=== PATIENT | female | born 1950 | race Hispanic/Latino ===

== ENCOUNTER 2017-12-18 11:01 | Inpatient (IN) | payer OTHER ==
[~2017-12-18] VITALS: Ht 162.6 cm; Wt 52.2 kg
[~2017-12-18 11:01] MED LIST: APIX5TAB PO; ASPI-1197 PO; ATOR10TA69 PO; AZAT50TA PO; CHOL100044 PO; LEVO50TA11 PO; METO25TA6 PO; OMEP20CA10 PO; PRED20TA3 PO; PROP225T3 PO; SULF1TAB42 PO; SUPER B COMPLEX PO; XALA2.5OS OU; iron PO
[2017-12-18] MEDS ORDERED: ASPIRIN 81MG TAB.CHEW ONE (11:43)
[2017-12-18] MEDS ORDERED: SODIUM CHLORIDE 0.9% 1000ML 1,000 ML IV ONE ×2 (11:43→16:01)
[2017-12-18 11:44] LABS: BASOPHILS % (AUTO) 0.8 % (0.0-5.0); EOSINOPHILS % (AUTO) 0.9 % (0.0-8.0); LYMPHOCYTES % (AUTO) 13.8 % (21.0-51.0); MEAN CORPUSCULAR HEMOGLOBIN 30.2 pg (27.0-33.0); MEAN CORPUSCULAR VOLUME 91.7 fL (79-99); MONOCYTES % (AUTO) 7.7 % (3.0-13.0); NEUTROPHILS % (AUTO) 76.8 % (40.0-77.0); PLATELET COUNT (AUTO) 324 K/uL (130-400); RED BLOOD CELL COUNT(AUTO) 3.05 MIL/uL (4.00-5.50); RED CELL DISTRIBUTION WIDTH 17.7 % (11.0-15.5)
[2017-12-18] MEDS ORDERED: FAMOTIDINE/PF 20 MG/2 ML VIAL IV ONE (11:44)
[2017-12-18 11:47] LABS: APPEARANCE,URINE Clear (CLEAR); BILIRUBIN,URINE Negative (NEGATIVE); COLOR,URINE Yellow (YELLOW); GLUCOSE, URINE (UA) Negative (NEGATIVE); KETONES,URINE Negative (NEGATIVE); LEUKOCYTE ESTERASE ,URINE Negative (NEGATIVE); NITRATE,URINE Negative (NEGATIVE); OCCULT BLOOD,URINE Negative (NEGATIVE); PROTEIN,URINE Negative (NEGATIVE); UROBILINOGEN,URINE 0.2 mg/dL (0.2-1.0)
[2017-12-18 11:52] LABS: POTASSIUM 3.9 mmol/L (3.5-5.1)
[2017-12-18 11:56] LABS: ALBUMIN 2.6 g/dL (3.5-5.0); BILIRUBIN,TOTAL 0.4 mg/dL (0.2-1.0); TOTAL PROTEIN, SERUM 5.9 g/dL (6.0-8.3)
[2017-12-18 11:57] LABS: CRP QUANTITATIVE 7.8 mg/L (0.00-9.0)
[2017-12-18 12:01] LABS: INR 1.03 (0.85-1.15); PARTIAL THROMBOPLASTIN TIME 28.7 SEC (26.3-35.5); PROTHROMBIN TIME 10.8 SEC (9.6-11.6)
[2017-12-18] MEDS ORDERED: MORPHINE SULFATE 2 MG/ML 1ML SYG ONE ×3 (12:10→16:05)
[2017-12-18] MEDS ORDERED: GUAIFENESIN-DM 200/20 MG 10 ML PO PRN (13:45)
[2017-12-18] MEDS ORDERED: ACETAMINOPHEN 325 MG TAB PO PRN ×2 (13:45)
[2017-12-18] MEDS ORDERED: MORPHINE SULFATE 4 MG/1ML SYG IV PRN (13:45)
[2017-12-18] MEDS ORDERED: MAG HYDROX/AL HYDROX/SIMETH ES 30 ML SUSP UDCUP PO PRN (13:45)
[2017-12-18] MEDS ORDERED: NITROGLYCERIN 0.4 MG SL TAB SL PRN (13:45)
[2017-12-18] MEDS ORDERED: HYDRALAZINE HCL 20 MG/ML VIAL IV PRN (13:45)
[2017-12-18] MEDS ORDERED: ACETAMINOPHEN-CODEINE 300/30MG TAB PO PRN ×2 (13:45)
[2017-12-18] MEDS ORDERED: ONDANSETRON HCL 4 MG/2 ML VIAL ONE (17:43)
[2017-12-18] MEDS ORDERED: DIGOXIN 250 MCG/ML 2ML AMP ONE (18:39)
[2017-12-18] MEDS ORDERED: METOPROLOL TARTRATE 1 MG/ML 5ML VIAL IV ONE (18:40)
[2017-12-18] MEDS: SODIUM CHLORIDE 0.9% 1000ML 1,000 ML IV SCH (20:25)
[2017-12-18 21:20] VITALS: BP 133/69
[2017-12-18] MEDS: PROPAFENONE HCL 150 MG TABLET PO SCH (22:09)
[2017-12-18] MEDS: FAMOTIDINE/PF 20 MG/2 ML VIAL IV SCH (22:14)
[2017-12-18] MEDS: METOPROLOL TARTRATE 25 MG TAB PO SCH (22:17)
[2017-12-18] MEDS: ENOXAPARIN SODIUM 80 MG/0.8 ML SQ SCH (22:17)
[2017-12-18 23:33] VITALS: BP 116/57
[2017-12-19] MEDS: ONDANSETRON HCL 4 MG/2 ML VIAL IV PRN ×2 (01:03→07:18)
[2017-12-19] MEDS: MORPHINE SULFATE 2 MG/ML 1ML SYG IV PRN ×3 (01:08→17:14)
[2017-12-19] MEDS: SODIUM CHLORIDE 0.9% 1000ML 1,000 ML IV SCH ×4 (03:05→20:56)
[2017-12-19 03:54] VITALS: BP 112/58
[2017-12-19 04:25] LABS: HEMATOCRIT 23.6 % (36-48); MEAN CORPUSCULAR HGB CONC 32.8 g/dL (32.0-36.0); MEAN CORPUSCULAR VOLUME 91.7 fL (79-99); PLATELET COUNT (AUTO) 262 K/uL (130-400); RED BLOOD CELL COUNT(AUTO) 2.58 MIL/uL (4.00-5.50); RED CELL DISTRIBUTION WIDTH 17.6 % (11.0-15.5); WHITE BLOOD COUNT (AUTO) 6.3 K/uL (4.8-10.8)
[2017-12-19 04:34] LABS: ALBUMIN 1.9 g/dL (3.5-5.0); BILIRUBIN,TOTAL 0.3 mg/dL (0.2-1.0); CREATININE 0.9 mg/dL (0.5-1.5); POTASSIUM 3.9 mmol/L (3.5-5.1); TOTAL PROTEIN, SERUM 4.5 g/dL (6.0-8.3)
[2017-12-19 07:00] VITALS: BP 157/75
[2017-12-19] MEDS: FAMOTIDINE/PF 20 MG/2 ML VIAL IV SCH ×2 (08:25→20:54)
[2017-12-19] MEDS: METOPROLOL TARTRATE 25 MG TAB PO SCH ×2 (08:26→20:54)
[2017-12-19] MEDS: PROPAFENONE HCL 150 MG TABLET PO SCH ×2 (08:26→20:54)
[2017-12-19] MEDS: ENOXAPARIN SODIUM 80 MG/0.8 ML SQ SCH (08:27)
[2017-12-19 11:00] VITALS: BP 125/53
[2017-12-19 16:00] VITALS: BP 160/68
[2017-12-19 19:43] VITALS: BP 137/58
[2017-12-19] MEDS: APIXABAN 5 MG TABLET PO SCH (20:54)
[2017-12-19 23:42] VITALS: BP 134/62
[2017-12-20] VITALS (7 sets, daily range): BP systolic 102–175; BP diastolic 50–79
[2017-12-20] MEDS: ONDANSETRON HCL 4 MG/2 ML VIAL IV PRN (03:10)
[2017-12-20] MEDS: MORPHINE SULFATE 2 MG/ML 1ML SYG IV PRN ×2 (03:10→20:11)
[2017-12-20 04:49] LABS: ALBUMIN 2.1 g/dL (3.5-5.0); BILIRUBIN,TOTAL 0.3 mg/dL (0.2-1.0); POTASSIUM 3.9 mmol/L (3.5-5.1)
[2017-12-20] MEDS: PROPAFENONE HCL 150 MG TABLET PO SCH ×2 (08:52→21:35)
[2017-12-20] MEDS: APIXABAN 5 MG TABLET PO SCH ×2 (08:53→20:11)
[2017-12-20] MEDS: METOPROLOL TARTRATE 25 MG TAB PO SCH ×2 (08:53→20:11)
[2017-12-20] MEDS: FAMOTIDINE/PF 20 MG/2 ML VIAL IV SCH ×2 (08:53→20:11)
[2017-12-20] MEDS: SODIUM CHLORIDE 0.9% 1000ML 1,000 ML IV SCH ×2 (09:40→12:45)
[2017-12-20 10:14] LABS: HEMATOCRIT 24.1 % (36-48); MEAN CORPUSCULAR HEMOGLOBIN 31.2 pg (27.0-33.0); MEAN CORPUSCULAR HGB CONC 33.8 g/dL (32.0-36.0); MEAN CORPUSCULAR VOLUME 92.3 fL (79-99); NUCLEATED RED BLOOD CELLS 0.2 % (0.0-0.19); PLATELET COUNT (AUTO) 248 K/uL (130-400); RED BLOOD CELL COUNT(AUTO) 2.61 MIL/uL (4.00-5.50)
[2017-12-21 04:00] VITALS: BP 130/53
[2017-12-21 07:00] VITALS: BP 131/58
[2017-12-21] MEDS: METOPROLOL TARTRATE 25 MG TAB PO SCH ×2 (08:32→20:39)
[2017-12-21] MEDS: FAMOTIDINE/PF 20 MG/2 ML VIAL IV SCH ×2 (08:32→20:39)
[2017-12-21] MEDS: APIXABAN 5 MG TABLET PO SCH ×2 (08:32→20:39)
[2017-12-21] MEDS: PROPAFENONE HCL 150 MG TABLET PO SCH ×2 (10:35→20:38)
[2017-12-21] MEDS: LACTULOSE 20 GM/30 ML UDCUP PO PRN (10:36)
[2017-12-21 11:00] VITALS: BP 148/62
[2017-12-21] MEDS: SIMETHICONE 80 MG TAB.CHEW PO SCH ×3 (12:23→20:39)
[2017-12-21 16:00] VITALS: BP 159/71
[2017-12-21] MEDS ORDERED: METOCLOPRAMIDE 10 MG/2 ML VIAL IVP SCH (16:30)
[2017-12-21 19:35] VITALS: BP 143/74
[2017-12-21] MEDS: METOCLOPRAMIDE 10 MG TABLET PO SCH (20:39)
[2017-12-22] VITALS (7 sets, daily range): BP systolic 94–167; BP diastolic 50–77
[2017-12-22] MEDS: METOCLOPRAMIDE 10 MG TABLET PO SCH ×4 (06:02→21:18)
[2017-12-22 06:57] LABS: CREATININE 0.9 mg/dL (0.5-1.5); POTASSIUM 3.4 mmol/L (3.5-5.1)
[2017-12-22] MEDS: PROPAFENONE HCL 150 MG TABLET PO SCH ×2 (10:09→21:19)
[2017-12-22] MEDS: SIMETHICONE 80 MG TAB.CHEW PO SCH ×4 (10:10→21:18)
[2017-12-22] MEDS: METOPROLOL TARTRATE 25 MG TAB PO SCH ×2 (10:10→21:19)
[2017-12-22] MEDS: APIXABAN 5 MG TABLET PO SCH ×2 (10:10→21:19)
[2017-12-22] MEDS: FAMOTIDINE/PF 20 MG/2 ML VIAL IV SCH ×2 (10:10→21:19)
[2017-12-23 03:59] VITALS: BP 136/60
[2017-12-23 06:10] LABS: CREATININE 0.9 mg/dL (0.5-1.5); POTASSIUM 3.6 mmol/L (3.5-5.1)
[2017-12-23] MEDS: METOCLOPRAMIDE 10 MG TABLET PO SCH ×2 (06:23→12:10)
[2017-12-23 08:00] VITALS: BP 130/62
[2017-12-23] MEDS: FAMOTIDINE/PF 20 MG/2 ML VIAL IV SCH (08:55)
[2017-12-23] MEDS: PROPAFENONE HCL 150 MG TABLET PO SCH (08:55)
[2017-12-23] MEDS: METOPROLOL TARTRATE 25 MG TAB PO SCH (08:55)
[2017-12-23] MEDS: APIXABAN 5 MG TABLET PO SCH (08:55)
[2017-12-23] MEDS: SIMETHICONE 80 MG TAB.CHEW PO SCH ×2 (08:55→13:57)
[2017-12-23] MEDS ORDERED: SIME80 PO (08:58)
[2017-12-23] MEDS ORDERED: METO5TAB87 PO (09:03)
[2017-12-23] MEDS: LACTULOSE 20 GM/30 ML UDCUP PO PRN (12:10)
[2017-12-23 14:02] VITALS: BP 138/73
[2017-12-25 13:53] LABS: HEMATOCRIT 23.2 % (36-48)
[2018-01-06] MEDS ORDERED: BRIM5DRO4 OU (12:46)
[2018-01-06] MEDS ORDERED: VIT D PO (12:46)
[2018-01-06] MEDS ORDERED: INFL100I INJ (12:46)
[2018-01-13] MEDS ORDERED: ACET-66 PO (10:54)
[2018-01-13] MEDS ORDERED: PRED10TA3 PO (10:54)
[2018-01-13] MEDS ORDERED: [UNRECOGNIZED DRUG - OTHER] PO (10:54)
[2018-01-13] MEDS ORDERED: SUCR1ORA3 PO (10:54)
[2018-01-21] MEDS ORDERED: APIX5TAB4 PO (10:54)
[2018-01-21] MEDS ORDERED: CLOP75TA14 PO (10:55)
== END 2017-12-23 17:13 | disposition home or self-care (01) | DRG 439 ==
LOC: EDH 11:01 → OBSVTOIN 13:45 → EDHIP 13:45 → 2DH 20:39 → 3CH 12-20 11:43
PROVIDERS: ADMIT Internal Medicine; ATTEND Internal Medicine
DX: K85.90 Acute pancreatitis without necrosis or infection, unspecified (principal); K50.90 Crohn's disease, unspecified, without complications; K63.3 Ulcer of intestine; I48.0 Paroxysmal atrial fibrillation; E44.1 Mild protein-calorie malnutrition; K31.84 Gastroparesis; K86.3 Pseudocyst of pancreas; K86.2 Cyst of pancreas; Z68.1 Body mass index [BMI] 19.9 or less, adult; D50.9 Iron deficiency anemia, unspecified; E03.9 Hypothyroidism, unspecified; E78.5 Hyperlipidemia, unspecified; H40.9 Unspecified glaucoma; I10 Essential (primary) hypertension; I25.10 Atherosclerotic heart disease of native coronary artery without angina pectoris; T40.605A Adverse effect of unspecified narcotics, initial encounter; Z79.01 Long term (current) use of anticoagulants; Z87.440 Personal history of urinary (tract) infections; Z88.8 Allergy status to other drugs, medicaments and biological substances; Z80.0 Family history of malignant neoplasm of digestive organs
CPT/HCPCS: 36415; 71045; 74176; 76705; 80048; 80053; 81003; 82150; 82550; 83605; 83690; 83880; 84484; 85014; 85018; 85025; 85027; 85610; 85730; 86141; 86316; 93005; J0360; J1160; J1650; J2270; J2405; J3490; J7030

== ENCOUNTER 2017-12-23 21:22 | Observation (INO) | payer OTHER ==
[~2017-12-23] VITALS: Ht 165.1 cm; Wt 22.9 kg
[~2017-12-23 21:22] MED LIST changes: +METO5TAB87 PO; +SIME80 PO
[2017-12-23 21:59] LABS: HEMATOCRIT 25.4 % (36-48); MEAN CORPUSCULAR HEMOGLOBIN 30.6 pg (27.0-33.0); PLATELET COUNT (AUTO) 299 K/uL (130-400); RED BLOOD CELL COUNT(AUTO) 2.82 MIL/uL (4.00-5.50); RED CELL DISTRIBUTION WIDTH 17.5 % (11.0-15.5); WHITE BLOOD COUNT (AUTO) 8.7 K/uL (4.8-10.8)
[2017-12-23 22:05] LABS: INR 1.09 (0.85-1.15); PARTIAL THROMBOPLASTIN TIME 36.2 SEC (26.3-35.5); PROTHROMBIN TIME 11.4 SEC (9.6-11.6)
[2017-12-23 22:10] LABS: ALBUMIN 2.2 g/dL (3.5-5.0); BILIRUBIN,DIRECT 0.1 mg/dL (0.0-0.3); BILIRUBIN,TOTAL 0.3 mg/dL (0.2-1.0); TOTAL PROTEIN, SERUM 5.7 g/dL (6.0-8.3)
[2017-12-23 22:12] LABS: POTASSIUM 2.8 mmol/L (3.5-5.1)
[2017-12-23 22:20] LABS: BAND NEUTROPHILS % (MANUAL) 3 % (0-2); LYMPHOCYTES % (MANUAL) 13 % (22-44); MAN.DIFF COMMENT-IMPRESSION MANUAL DIFFERENTIAL; MONOCYTES % (MANUAL) 13 % (2-9); SEGMENTED NEUTROPHILS % 71 % (40-70)
[2017-12-23 22:26] LABS: B-TYPE NATRIURETIC PEPTIDE 391 pg/mL (0-100)
[2017-12-23] MEDS ORDERED: MAGNESIUM 2GM PREMIX 50ML 50 ML IV ONE (22:28)
[2017-12-23] MEDS ORDERED: METOPROLOL TARTRATE 1 MG/ML 5ML VIAL IV ONE (22:28)
[2017-12-23] MEDS ORDERED: POTASSIUM CHLORIDE 20MEQ/100ML 100 ML IV ONE (22:31)
[2017-12-23] MEDS ORDERED: LIDOCAINE HCL-MPF 1% 2ML VIAL ONE (22:31)
[2017-12-24 06:32] LABS: BASOPHILS % (AUTO) 0.6 % (0.0-5.0); EOSINOPHILS % (AUTO) 1.4 % (0.0-8.0); HEMATOCRIT 22.1 % (36-48); LYMPHOCYTES % (AUTO) 19.5 % (21.0-51.0); MEAN CORPUSCULAR HEMOGLOBIN 30.9 pg (27.0-33.0); MEAN CORPUSCULAR HGB CONC 34.3 g/dL (32.0-36.0); MEAN CORPUSCULAR VOLUME 90.2 fL (79-99); NEUTROPHILS % (AUTO) 67.5 % (40.0-77.0); PLATELET COUNT (AUTO) 268 K/uL (130-400); RED BLOOD CELL COUNT(AUTO) 2.45 MIL/uL (4.00-5.50); RED CELL DISTRIBUTION WIDTH 17.7 % (11.0-15.5); WHITE BLOOD COUNT (AUTO) 5.8 K/uL (4.8-10.8)
[2017-12-24 06:39] LABS: CARBON DIOXIDE 30 mmol/L (21-32); CHLORIDE 107 mmol/L (101-111); CREATINE KINASE MB < 0.5 ng/mL (0.5-3.6); CREATINE KINASE, TOTAL 20 U/L (21-232); CREATININE 0.8 mg/dL (0.5-1.5); GLOMERULAR FILTR. RATE CALC 76 mL/min (>60); GLUCOSE,RANDOM 69 mg/dL (70-105); MYOGLOBIN 33 ng/mL (10-92); POTASSIUM 3.5 mmol/L (3.5-5.1); SODIUM SERUM 141 mmol/L (136-145); TROPONIN I < 0.04 ng/mL (0.00-0.06); UREA NITROGEN, BLOOD 8 mg/dL (7-18)
[2017-12-24] MEDS ORDERED: POTASSIUM CHLORIDE 20 MEQ ERTAB PO ONE ×2 (10:13→14:38)
[2017-12-24 11:00] VITALS: BP 154/75
[2017-12-24] MEDS ORDERED: IPRATROPIUM/ALBUTEROL SULFATE 3 ML SOLUTION IH SCH (12:00)
[2017-12-24] MEDS ORDERED: IPRATROPIUM/ALBUTEROL SULFATE 3 ML SOLUTION IH PRN (12:00)
[2017-12-24 16:02] VITALS: BP 123/68
[2017-12-24 19:00] VITALS: BP 152/70
[2017-12-24 19:26] LABS: POTASSIUM 4.2 mmol/L (3.5-5.1)
[2017-12-24] MEDS ORDERED: ATORVASTATIN CALCIUM 10 MG TABLET PO SCH (21:00)
[2017-12-24] MEDS ORDERED: METOPROLOL TARTRATE 25 MG TAB PO SCH (21:00)
[2017-12-24] MEDS ORDERED: LATANOPROST 2.5 ML DROPS OU SCH (21:00)
[2017-12-24] MEDS ORDERED: ASPIRIN 81MG TAB.CHEW PO SCH (21:00)
[2017-12-24] MEDS: PROPAFENONE HCL 150 MG TABLET PO SCH (21:04)
[2017-12-24] MEDS: APIXABAN 5 MG TABLET PO SCH (21:05)
[2017-12-25] VITALS: BP 98/53
[2017-12-25 04:00] VITALS: BP 119/54
[2017-12-25 04:37] LABS: BASOPHILS % (AUTO) 0.7 % (0.0-5.0); EOSINOPHILS % (AUTO) 2.7 % (0.0-8.0); HEMATOCRIT 21.1 % (36-48); LYMPHOCYTES % (AUTO) 30.4 % (21.0-51.0); MEAN CORPUSCULAR HEMOGLOBIN 29.8 pg (27.0-33.0); MEAN CORPUSCULAR VOLUME 90.4 fL (79-99); MONOCYTES % (AUTO) 11.1 % (3.0-13.0); NEUTROPHILS % (AUTO) 55.1 % (40.0-77.0); PLATELET COUNT (AUTO) 267 K/uL (130-400); RED BLOOD CELL COUNT(AUTO) 2.34 MIL/uL (4.00-5.50); RED CELL DISTRIBUTION WIDTH 17.9 % (11.0-15.5); WHITE BLOOD COUNT (AUTO) 4.5 K/uL (4.8-10.8)
[2017-12-25 05:26] LABS: CARBON DIOXIDE 29 mmol/L (21-32); CHLORIDE 104 mmol/L (101-111); CREATINE KINASE MB < 0.5 ng/mL (0.5-3.6); CREATINE KINASE, TOTAL 11 U/L (21-232); GLOMERULAR FILTR. RATE CALC 59 mL/min (>60); GLUCOSE,RANDOM 62 mg/dL (70-105); MYOGLOBIN 27 ng/mL (10-92); SODIUM SERUM 139 mmol/L (136-145); TROPONIN I < 0.04 ng/mL (0.00-0.06); UREA NITROGEN, BLOOD 10 mg/dL (7-18)
[2017-12-25 07:19] VITALS: BP 129/55
[2017-12-25] MEDS: APIXABAN 5 MG TABLET PO SCH (08:24)
[2017-12-25] MEDS ORDERED: VITAMIN B COMPLEX 1 CAPSULE PO SCH (09:00)
[2017-12-25] MEDS: PROPAFENONE HCL 150 MG TABLET PO SCH (09:00)
[2017-12-25] MEDS ORDERED: PANTOPRAZOLE SODIUM 40 MG TABLET.DR PO SCH (09:00)
[2017-12-25] MEDS ORDERED: **HM** VIT D3 1000 UNITS PO SCH (09:00)
[2017-12-25] MEDS ORDERED: LEVOTHYROXINE 50 MCG TABLET PO SCH (09:00)
[2017-12-25] MEDS ORDERED: FERROUS SULFATE 325 MG TABLET.DR PO SCH (09:00)
[2017-12-25 11:14] VITALS: BP 145/74
[2017-12-25 16:08] VITALS: BP 150/73
[2018-01-06] MEDS ORDERED: BRIM5DRO4 OU (12:46)
[2018-01-06] MEDS ORDERED: VIT D PO (12:46)
[2018-01-06] MEDS ORDERED: INFL100I INJ (12:46)
[2018-01-13] MEDS ORDERED: ACET-66 PO (10:54)
[2018-01-13] MEDS ORDERED: SUCR1ORA3 PO (10:54)
[2018-01-13] MEDS ORDERED: PRED10TA3 PO (10:54)
[2018-01-13] MEDS ORDERED: [UNRECOGNIZED DRUG - OTHER] PO (10:54)
[2018-01-21] MEDS ORDERED: APIX5TAB4 PO (10:54)
[2018-01-21] MEDS ORDERED: CLOP75TA14 PO (10:55)
== END 2017-12-25 17:10 | disposition home or self-care (01) ==
LOC: EDH 21:22 → EDHIP 12-24 02:45 → 2CH 12-24 11:03
PROVIDERS: ADMIT Family Medicine; ATTEND Family Medicine
DX: I48.2 Chronic atrial fibrillation (principal); E87.6 Hypokalemia; K50.90 Crohn's disease, unspecified, without complications; I10 Essential (primary) hypertension; E03.9 Hypothyroidism, unspecified; E78.5 Hyperlipidemia, unspecified; E86.0 Dehydration; H40.9 Unspecified glaucoma; D64.9 Anemia, unspecified; J98.11 Atelectasis; Z80.0 Family history of malignant neoplasm of digestive organs; Z88.8 Allergy status to other drugs, medicaments and biological substances; Z79.82 Long term (current) use of aspirin; Z79.899 Other long term (current) drug therapy
CPT/HCPCS: 36415 ×3; 70450; 71045; 80048 ×4; 80076; 82550 ×2; 82553 ×2; 83874 ×2; 83880; 84132; 84484 ×3; 85007; 85014; 85018; 85025 ×3; 85610; 85730; 93005; 94664; 99291; A4510; G0378 ×38; J3475; J3480; J3490 ×2

== ENCOUNTER 2018-01-08 05:50 | Day surgery (SDC) | payer OTHER ==
[2018-01-06 12:00] VITALS: BP 123/63
[2018-01-06 12:02] LABS: BASOPHILS % (AUTO) 0.5 % (0.0-5.0); EOSINOPHILS % (AUTO) 0.5 % (0.0-8.0); HEMATOCRIT 31.4 % (36-48); LYMPHOCYTES % (AUTO) 11.9 % (21.0-51.0); MEAN CORPUSCULAR HEMOGLOBIN 31.1 pg (27.0-33.0); MEAN CORPUSCULAR HGB CONC 33.8 g/dL (32.0-36.0); MEAN CORPUSCULAR VOLUME 92.1 fL (79-99); MONOCYTES % (AUTO) 7.3 % (3.0-13.0); NEUTROPHILS % (AUTO) 79.8 % (40.0-77.0); PLATELET COUNT (AUTO) 420 K/uL (130-400); RED BLOOD CELL COUNT(AUTO) 3.41 MIL/uL (4.00-5.50); RED CELL DISTRIBUTION WIDTH 18.4 % (11.0-15.5); WHITE BLOOD COUNT (AUTO) 10.2 K/uL (4.8-10.8)
[2018-01-06 12:14] LABS: INR 1.02 (0.85-1.15); PARTIAL THROMBOPLASTIN TIME 31.5 SEC (26.3-35.5); PROTHROMBIN TIME 10.7 SEC (9.6-11.6)
[2018-01-06 12:19] LABS: CREATININE 1.3 mg/dL (0.5-1.5); POTASSIUM 4.1 mmol/L (3.5-5.1)
[~2018-01-08] VITALS: Ht 165.1 cm; Wt 49.4 kg
[~2018-01-08 05:50] MED LIST changes: -AZAT50TA PO; +BRIM5DRO4 OU; -CHOL100044 PO; +INFL100I INJ; -METO5TAB87 PO; -PRED20TA3 PO; -SIME80 PO; -SULF1TAB42 PO; -SUPER B COMPLEX PO; +VIT D PO
[2018-01-08 05:55] VITALS: BP 172/65
[2018-01-08] MEDS ORDERED: SODIUM CHLORIDE 0.9% 1000ML 1,000 ML IV ONE (07:00)
[2018-01-08] MEDS ORDERED: MIDAZOLAM HCL 1 MG/ML 2ML VIAL ONE ×2 (12:27→12:38)
[2018-01-08] MEDS ORDERED: FENTANYL CITRATE PF 50 MCG/1 ML 2ML VIAL ONE (12:28)
[2018-01-08] MEDS ORDERED: BENZOCAINE 20% 57 GM SPRAY ONE (12:29)
[2018-01-13] MEDS ORDERED: [UNRECOGNIZED DRUG - OTHER] PO (10:54)
[2018-01-13] MEDS ORDERED: PRED10TA3 PO (10:54)
[2018-01-13] MEDS ORDERED: ACET-66 PO (10:54)
[2018-01-13] MEDS ORDERED: SUCR1ORA3 PO (10:54)
[2018-01-21] MEDS ORDERED: APIX5TAB4 PO (10:54)
[2018-01-21] MEDS ORDERED: CLOP75TA14 PO (10:55)
== END 2018-01-08 14:15 | disposition home or self-care (01) ==
LOC: DAH 05:50
PROVIDERS: ATTEND Internal Medicine Cardiovascular Disease
DX: I48.0 Paroxysmal atrial fibrillation (principal); I10 Essential (primary) hypertension; Z79.899 Other long term (current) drug therapy; I25.10 Atherosclerotic heart disease of native coronary artery without angina pectoris; E78.5 Hyperlipidemia, unspecified; Z88.8 Allergy status to other drugs, medicaments and biological substances
CPT/HCPCS: 36415; 80048; 85025; 85610; 85730; 93312; A4606; J2250; J3010; J7030; 99153

== ENCOUNTER 2018-01-27 09:41 | Day surgery (SDC) | payer OTHER ==
[2018-01-21 09:43] VITALS: BP 131/60
[~2018-01-27] VITALS: Ht 167.6 cm; Wt 50.0 kg
[~2018-01-27 09:41] MED LIST changes: +ACET-66 PO; +APIX5TAB4 PO; +CLOP75TA14 PO; +LEVOFLOXACIN 500 MG/D5W 100 ML 100 ML IV SCH; +PRED10TA3 PO; +PROPOFOL 10 MG/ML 20ML VIAL IV ONE; +SODIUM CHLORIDE 0.9% 1000ML 0 ML IV ONE; +SODIUM CHLORIDE 0.9% 1000ML 1,000 ML IV SCH; -VIT D PO; -XALA2.5OS OU; +[UNRECOGNIZED DRUG - OTHER] PO
[2018-01-27] MEDS ORDERED: LEVOFLOXACIN 500 MG/D5W 100 ML 100 ML IV SCH (10:13)
[2018-01-27 10:53] VITALS: BP 162/91
[2018-01-27] MEDS ORDERED: SODIUM CHLORIDE 0.9% 1000ML 1,000 ML IV ONE (11:14)
[2018-01-27 11:55] VITALS: BP 117/52
== END 2018-01-27 12:55 | disposition home or self-care (01) ==
LOC: DAH 09:41
PROVIDERS: ATTEND Internal Medicine Gastroenterology
DX: K86.2 Cyst of pancreas (principal); I10 Essential (primary) hypertension; I48.91 Unspecified atrial fibrillation; E78.5 Hyperlipidemia, unspecified; K50.90 Crohn's disease, unspecified, without complications; Z79.84 Long term (current) use of oral hypoglycemic drugs; Z79.899 Other long term (current) drug therapy; K85.30 Drug induced acute pancreatitis without necrosis or infection; R63.4 Abnormal weight loss
CPT/HCPCS: 43232; 88173; 88305; 93005; 96365; A4215; A4606 ×2; J1956 ×2; J2704; J7030 ×2

== ENCOUNTER 2018-07-10 05:35 | Day surgery (SDC) | payer OTHER ==
[~2018-07-10] VITALS: Ht 162.6 cm; Wt 44.5 kg
[~2018-07-10 05:35] MED LIST changes: -APIX5TAB PO; -APIX5TAB4 PO; -CLOP75TA14 PO; -LEVOFLOXACIN 500 MG/D5W 100 ML 100 ML IV SCH; -PROPOFOL 10 MG/ML 20ML VIAL IV ONE; -SODIUM CHLORIDE 0.9% 1000ML 1,000 ML IV SCH
[2018-07-10] MEDS ORDERED: SODIUM CHLORIDE 0.9% 1000ML 1,000 ML IV ONE (05:41)
[2018-07-10 05:53] VITALS: BP 123/70
[2018-07-10] MEDS ORDERED: LATA7.5D OP (06:25)
[2018-07-10] MEDS ORDERED: APIX5TAB PO (06:25)
[2018-07-10] MEDS ORDERED: SIME120L MC (06:25)
[2018-07-10] MEDS ORDERED: OCTR50AM IJ (06:25)
[2018-07-10] MEDS ORDERED: LACT1CAP62 PO (06:25)
[2018-07-10] MEDS ORDERED: GLYCOPYRROLATE 0.2 MG/ML 5 ML VIAL ONE (06:29)
[2018-07-10] MEDS ORDERED: PROPOFOL 10 MG/ML 20ML VIAL IV ONE ×2 (06:29→06:50)
[2018-07-10] MEDS ORDERED: IOHEXOL-350 50ML VIAL IV ONE (06:35)
== END 2018-07-10 08:00 | disposition home or self-care (01) ==
LOC: ENDO 05:35 → DAH 05:35 → ENDO 08:00
PROVIDERS: ATTEND Internal Medicine Gastroenterology
DX: K86.89 Other specified diseases of pancreas (principal); K85.90 Acute pancreatitis without necrosis or infection, unspecified; K86.2 Cyst of pancreas; I10 Essential (primary) hypertension; D64.9 Anemia, unspecified; K50.90 Crohn's disease, unspecified, without complications; J30.9 Allergic rhinitis, unspecified; E78.4 Other hyperlipidemia; Z79.899 Other long term (current) drug therapy; Z88.8 Allergy status to other drugs, medicaments and biological substances
CPT/HCPCS: 43274; 74330; 93005; A4606; C2617; J2704 ×2; J3490; J7030; Q9967

== ENCOUNTER 2018-10-29 05:30 | Day surgery (SDC) | payer OTHER ==
[~2018-10-29] VITALS: Ht 165.1 cm; Wt 42.7 kg
[2018-10-29] VITALS (11 sets, daily range): BP systolic 114–132; BP diastolic 49–69
[~2018-10-29 05:30] MED LIST changes: -ACET-66 PO; +APIX5TAB PO; -ASPI-1197 PO; +LACT1CAP62 PO; +LATA7.5D OP; +OCTR50AM IJ; -PRED10TA3 PO; +SIME120L MC; -SODIUM CHLORIDE 0.9% 1000ML 0 ML IV ONE; -[UNRECOGNIZED DRUG - OTHER] PO
[2018-10-29] MEDS ORDERED: SODIUM CHLORIDE 0.9% 1000ML 1,000 ML IV ONE (05:47)
[2018-10-29] MEDS ORDERED: IOHEXOL-350 50ML VIAL IV ONE ×2 (06:27→06:37)
[2018-10-29] MEDS ORDERED: SUCR1ORA5 PO (06:28)
[2018-10-29] MEDS ORDERED: CHOL100046 PO (06:28)
[2018-10-29] MEDS ORDERED: AMYL1CAP63 PO (06:28)
[2018-10-29] MEDS ORDERED: PANT20TA12 PO (06:28)
[2018-10-29] MEDS ORDERED: ASPI-1026 PO (06:28)
[2018-10-29] MEDS ORDERED: SUCCINYLCHOLINE CHLORIDE 20 MG/ML 10 ML VIAL ONE (06:29)
[2018-10-29] MEDS ORDERED: PROPOFOL 10 MG/ML 20ML VIAL IV ONE (06:29)
[2018-10-29] MEDS ORDERED: INDOMETHACIN 50 MG SUPP.RECT RC SCH (07:15)
== END 2018-10-29 08:33 | disposition home or self-care (01) ==
LOC: DAH 05:30 → ENDO 05:30
PROVIDERS: ATTEND Internal Medicine
DX: K86.89 Other specified diseases of pancreas (principal); E78.5 Hyperlipidemia, unspecified; D64.9 Anemia, unspecified; K50.90 Crohn's disease, unspecified, without complications; I10 Essential (primary) hypertension; J30.9 Allergic rhinitis, unspecified; Z79.899 Other long term (current) drug therapy; Z98.890 Other specified postprocedural states; Z88.8 Allergy status to other drugs, medicaments and biological substances
CPT/HCPCS: 43276; 74330; 93005; A4606; C1769; C1875; J0330; J2704; J7030; Q9967; 43274; 43275

== ENCOUNTER 2019-01-01 05:51 | Day surgery (SDC) | payer OTHER ==
[2019-01-01] VITALS (7 sets, daily range): BP systolic 107–143; BP diastolic 50–64
[~2019-01-01] VITALS: Ht 162.6 cm; Wt 40.8 kg
[~2019-01-01 05:51] MED LIST changes: +AMYL1CAP63 PO; -APIX5TAB PO; +ASPI-1026 PO; +CHOL100046 PO; -INFL100I INJ; -LACT1CAP62 PO; -OCTR50AM IJ; -OMEP20CA10 PO; +PANT20TA12 PO; -SIME120L MC; +SODIUM CHLORIDE 0.9% 1000ML 1,000 ML IV ONE; +SUCR1ORA5 PO; -iron PO
[2019-01-01] MEDS ORDERED: PROPOFOL 10 MG/ML 20ML VIAL IV ONE (08:22)
[2019-01-05] MEDS ORDERED: LATA7.5D OP (23:57)
[2019-01-05] MEDS ORDERED: OMEP20TA25 PO (23:57)
== END 2019-01-01 09:22 | disposition home or self-care (01) ==
LOC: DAH 05:51 → ENDO 05:51
PROVIDERS: ATTEND Internal Medicine
DX: D12.2 Benign neoplasm of ascending colon (principal); R19.7 Diarrhea, unspecified; D64.9 Anemia, unspecified; K85.90 Acute pancreatitis without necrosis or infection, unspecified; K50.90 Crohn's disease, unspecified, without complications; K86.2 Cyst of pancreas; E78.5 Hyperlipidemia, unspecified; I10 Essential (primary) hypertension; Z79.899 Other long term (current) drug therapy; Z98.890 Other specified postprocedural states; Z88.8 Allergy status to other drugs, medicaments and biological substances; K64.0 First degree hemorrhoids; K57.30 Diverticulosis of large intestine without perforation or abscess without bleeding
CPT/HCPCS: 45380; 88305; A4606; J2704; J7030

== ENCOUNTER → 2019-04-02 | Outpatient (CLI) | payer OTHER ==
[~2019-04-02] MED LIST changes: -ATOR10TA69 PO; +IOHEXOL-350 75 ML VIAL IV ONE; +MIDO2.5T PO; +OMEP20TA25 PO; -PANT20TA12 PO; -SODIUM CHLORIDE 0.9% 1000ML 1,000 ML IV ONE
== END | disposition home or self-care (01) ==
LOC: RAH 17:11 → EDH 17:22 → EDSTATUS 17:22 → RAH 17:30
PROVIDERS: ATTEND Internal Medicine Nephrology
DX: R18.8 Other ascites (principal); I70.90 Unspecified atherosclerosis; J90 Pleural effusion, not elsewhere classified; J98.11 Atelectasis
CPT/HCPCS: 74178; Q9967